=== PATIENT | male | born 1950 | race Two or more races ===

== ENCOUNTER 2022-10-05 15:49 | Emergency (ER) | payer OTHER ==
[~2022-10-05] VITALS: Ht 170.2 cm; Wt 91.0 kg
[2022-10-05 16:29] VITALS: BP 132/91
[2022-10-05] MEDS ORDERED: HYDROcodone-ACET 5/325MG TAB PO ONE (16:45)
[2022-10-05] MEDS ORDERED: CEPH500C PO (17:49)
[2022-10-05] MEDS ORDERED: TRAM50TA2 PO (17:49)
== END 2022-10-05 17:58 | disposition home or self-care (01) ==
LOC: ER 15:49 → EDBD 15:49 → ER 17:58
DX: S23.41XA Sprain of ribs, initial encounter (principal); I48.91 Unspecified atrial fibrillation; E11.9 Type 2 diabetes mellitus without complications; I10 Essential (primary) hypertension; W18.09XA Striking against other object with subsequent fall, initial encounter; Y93.89 Activity, other specified; Y92.89 Other specified places as the place of occurrence of the external cause; Y99.8 Other external cause status
CPT/HCPCS: 71250